=== PATIENT | male | born 1985 | race Caucasian/White ===

== ENCOUNTER 2021-05-10 01:10 | Emergency (ER) | payer OTHER ==
[~2021-05-10] VITALS: Ht 177.8 cm; Wt 81.6 kg
--- NOTE | 2021-05-10 01:21 | NUR ---
[facility] AND [employer] FOR C/O SI, PLANNING TO JUMP IN TO STREET. REFUSED VOLUNTARY PSYCH ADMISSION. REPORTED HX OF PSYCH. PER EMS HAS BEEN NON- COMPLIANT W/ HIS PRESCRIBED SEROQUEL. ADMITTED ON TAKING METH. PT WAS PLACED IN BED 12 ER W/ SITTER SUPERVISION. [employer] REMAINED AT BED SIDE AT THIS TIME WHO WILL PLACED THE PT ON 5150 HOLD. SI PRECAUTION IMPLEMENTED . WILL CONT TO MONITOR ,
[2021-05-10 02:04] LABS: BASOPHILS % (AUTO) 0.6 % (0.0-2.0); HEMATOCRIT 43 % (39-51); HEMOGLOBIN 14.4 g/dL (13.5-17.5); LYMPHOCYTES # (AUTO) 2.3 K/uL (0.8-4.8); LYMPHOCYTES % (AUTO) 31.3 % (20.0-44.0); MEAN CORPUSCULAR HGB CONC 34 g/dl (31.0-36.0); MEAN CORPUSCULAR VOLUME 87 fL (80-96); MONOCYTES # (AUTO) 0.6 K/uL (0.1-1.30); NEUTROPHILS % (AUTO) 56.1 % (43.0-81.0); PLATELET COUNT (AUTO) 198 K/uL (150-450); RED BLOOD CELL COUNT(AUTO) 4.92 MIL/uL (4.5-6.0); WHITE BLOOD COUNT (AUTO) 7.2 K/uL (4.3-11.0)
[2021-05-10 02:10] LABS: BILIRUBIN,URINE NEGATIVE (NEGATIVE); COLOR,URINE YELLOW (YELLOW); LEUKOCYTE ESTERASE ,URINE NEGATIVE (NEGATIVE); NITRITE, URINE NEGATIVE (NEGATIVE); PROTEIN,URINE NEGATIVE (NEGATIVE); UGLUCOSE NEGATIVE (NEGATIVE); UROBILINOGEN,URINE 0.2 EU/dL (0.2)
[2021-05-10 03:07] LABS: BILIRUBIN,TOTAL 0.2 mg/dL (0.2-1.0); CALCIUM, SERUM 8.5 mg/dL (8.5-10.1); CARBON DIOXIDE 28 mmol/L (21-32); CHLORIDE 104 mmol/L (98-107); CREATININE 1.1 mg/dL (0.6-1.3); GLUCOSE 95 mg/dL (74-106); POTASSIUM 3.5 mmol/L (3.5-5.1); SODIUM SERUM 146 mmol/L (136-145); UREA NITROGEN, BLOOD 19 mg/dL (7-18)
[2021-05-10 03:08] LABS: ACETAMINOPHEN < 2 ug/ml (10-30); ALANINE AMINOTRANSFERASE 26 U/L (12-78); ALCOHOL, BLOOD < 3 mg/dL (0-0); ALKALINE PHOSPHATASE 101 U/L (46-116); ASPARTATE AMINOTRANSFERASE 19 U/L (15-37); BILIRUBIN,DIRECT 0.1 mg/dL (0.0-0.2); TOTAL PROTEIN, SERUM 7.8 g/dL (6.4-8.2)
--- NOTE | 2021-05-10 05:00 | NUR ---
PATIENT AMBULATED TO RESTROOM AND RETURNED TO BED. PATIENT PROVIDED WITH PO FUILDS TOLERATING WELL. VSS. WILL CONTINUE TO MONITOR.
--- NOTE | 2021-05-10 09:19 | NUR ---
CALLED ART ON HIS WAY.
--- NOTE | 2021-05-10 10:30 | NUR ---
PROVIDED W/ MEAL TRAY. STABLE VITALS.
--- NOTE | 2021-05-10 11:14 | NUR ---
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
[2021-05-10 12:09] VITALS: BP 146/87
--- NOTE | 2021-05-10 12:09 | NUR ---
PT IS MEDICALLY AND PSYCH CLEARED. AMBULATORY W. STEADY GAIT. DISCHARGE IN STABLE CONDITION.
== END 2021-05-10 12:10 | disposition home or self-care (01) ==
LOC: ER 01:12
DX: R45.851 Suicidal ideations (principal); F15.10 Other stimulant abuse, uncomplicated; Z59.00 Homelessness unspecified; Z20.822 Contact with and (suspected) exposure to COVID-19
CPT/HCPCS: 36415; 80048; 80076; 80143; 80307; 80320; 81003; 85025; 87426; 99285; C9803; G0480